=== PATIENT | female | born 1960 | race Caucasian/White ===

== ENCOUNTER 2024-12-13 17:40 | Outpatient (REF) | payer MEDICARE, MEDICAID, SELFPAY ==
--- NOTE | 2024-12-13 14:30 | PAPFT_PTH ---
PATIENT: Ronda Ruvalcaba LOC: [facility] U#:[id number] AGE/SX: 64/F ROOM: RE12/13/[address]: Radha Bustamante MD : [id number] BED: DIS: 12/13/2024 SPEC #: [id number] RECD: 12/13/24 17:58 STATUS: MICHELLE REQ #: [id number] CASEY: 12/13/24 14:[address]: Radha Bustamante DEPT: [facility] Cytology RECD BY: Susi Menon ENTERED: 12/13/24 17:58 SP TYPE: PAPFT OT DR: Unknown,Unknown Tissues: 1 - CX/ENDOCX FOR PAP SMEARS Procedures: PAP THIN PREP/[facility] Screening HPV DNA PROBE Comments: [id number] (HPV 16 & 18/45)
== END 2024-12-13 17:41 | disposition home or self-care (01) ==
LOC: LBN 17:40
PROVIDERS: Visit Provider Obstetrics & Gynecology
DX: Z12.4 Encounter for screening for malignant neoplasm of cervix (principal)
CPT/HCPCS: 88142; 87624